=== PATIENT | male | born 2000 | race Caucasian/White ===

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

== ENCOUNTER 2018-02-08 12:43 | Emergency (ER) | payer BC, OTHER ==
[2018-02-08 13:07] VITALS: BP 131/74
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
[2018-02-08] MEDS ORDERED: Acetaminophen TAB* 325 MG PO ONE (13:33)
== END 2018-02-08 13:55 | disposition home or self-care (01) ==
LOC: UCEAST 12:43
DX: S06.0X0A Concussion without loss of consciousness, initial encounter (principal); S80.11XA Contusion of right lower leg, initial encounter; S50.11XA Contusion of right forearm, initial encounter; V49.40XA Driver injured in collision with unspecified motor vehicles in traffic accident, initial encounter; Y92.410 Unspecified street and highway as the place of occurrence of the external cause
CPT/HCPCS: 99211; A9270-GY; G0463

== ENCOUNTER 2019-02-05 11:26 | Emergency (ER) | payer BC, OTHER ==
[2019-02-05] MEDS ORDERED: Ondansetron ODT TAB* 4 MG SL PRN (12:59)
[2019-02-05] MEDS ORDERED: Ondansetron ODT TAB* 4 MG ONE (13:03)
[2019-02-05] MEDS ORDERED: Ondansetron INJ* 2 MG/ML VIAL IV ONE ×2 (13:47→17:47)
[2019-02-05] MEDS ORDERED: NS 0.9% 1000 ML** 1,000 ML IV ONE ×2 (13:47→14:18)
--- NOTE | 2019-02-05 13:53 | ED ---
GI/ HPI - HPI Summary HPI Summary: Pt is a 18 y/o M presenting to the ED with a chief complaint of GI issues. He states he began feeling ill with upper respiratory symptoms on 02/03/19, including cough, rhinorrhea, and nasal congestion. He woke up the next day feeling okay, but tried to eat something and immediately vomited. He reports N/V /D, and abd pain. He denies fever, headache, recent travel, or being around anyone that was sick. - History of Current Complaint Chief Complaint: EDNauseaVomitDiarrh Time Seen by Provider: 02/05/19 13:47 Stated Complaint: VOMITING PER PT Hx Obtained From: Patient Onset/Duration: Started Days Ago, Still Present Timing: Constant, Lasting Days Severity: Moderate Current Severity: Severe Pain Intensity: 7 Location of Pain: Diffuse Associated Signs and Symptoms: Positive: Nausea, Vomiting, Diarrhea, Cough. Negative: Fever Aggravating Factor(s): Nothing Alleviating Factor(s): Nothing - Allergy/Home Medications Allergies/Adverse Reactions: Allergies Allergy/AdvReac Type Severity Reaction Status Date / Time No Known Allergies Allergy Verified 02/05/19 14:00 Home Medications: Home Medications Sertraline* [Zoloft*] 100 mg PO DAILY 02/05/19 [History Confirmed 02/05/19] PMH/Surg Hx/FS Hx/Imm Hx Previously Healthy: Yes Endocrine/Hematology History: Denies: Hx Diabetes Cardiovascular History: Denies: Hx Hypertension, Hx Pacemaker/ICD History: Denies: Hx Renal Disease Musculoskeletal History: Reports: Other Musculoskeletal History - internal derangement right knee Sensory History: Denies: Hx Hearing Aid Psychiatric History: Denies: Hx Panic Disorder - Cancer History Hx Hematologic Symptoms: No Hx Chemotherapy: No Hx Radiation Therapy: No Hx Palliative Cancer Treatment: No - Surgical History Surgery Procedure, Year, and Place: Right Knee ACL RECONTSTRUCTION. LEFT KNEE ACL RECONSTRUCTION Hx Anesthesia Reactions: No Infectious Disease History: No Infectious Disease History: Denies: Traveled Outside the [place] in Last 30 Days - Family History Known Family History: Negative: Hypertension, Diabetes - Social History Alcohol Use: Occasionally Hx Substance Use: Yes Substance Use Type: Reports: None Hx Tobacco Use: No Smoking Status (MU): Never Smoked Tobacco Review of Systems Negative: Fever Positive: Nasal Discharge Positive: Cough Positive: Abdominal Pain, Vomiting, Diarrhea, Nausea All Other Systems Reviewed And Are Negative: Yes Physical Exam - Summary Physical Exam Summary: Constitutional: Well-developed, Well-nourished, Alert. (-) Distressed Skin: Warm, Dry HENT: Normocephalic; Atraumatic. Dry mucous membranes Eyes: Conjunctiva normal Neck: Musculoskeletal ROM normal neck. (-) JVD, (-) Stridor, (-) Nuchal rigidity Cardio: Rhythm regular, rate normal, Heart sounds normal; Intact distal pulses; Radial pulses are 2+ and symmetric. (-) Murmur Pulmonary/Chest wall: Effort normal. (-) Respiratory distress, (-) Wheezes, (-) Rales Abd: Soft, mild epigastric tenderness, (-) Distension, (-) Guarding, (-) Rebound Musculoskeletal: (-) Edema Lymph: (-) Cervical adenopathy Neuro: Alert, Oriented x3 Psych: Mood and affect Normal Triage Information Reviewed: Yes Vital Signs On Initial Exam: Initial Vitals Temp Pulse Resp BP Pulse Ox 97.8 F 87 16 133/87 98 02/05/19 11:29 02/05/19 11:29 02/05/19 11:29 02/05/19 11:29 02/05/19 11:29 Vital Signs Reviewed: Yes Procedures - Sedation Patient Received Moderate/Deep Sedation with Procedure: No Diagnostics - Vital Signs Vital Signs Temp Pulse Resp BP Pulse Ox 02/05/19 12:55 98.1 F 92 16 142/99 98 02/05/19 11:29 97.8 F 87 16 133/87 98 - Laboratory Result Diagrams: 02/05/19 14:12 02/05/19 14:12 Lab Statement: Any lab studies that have been ordered have been reviewed, and results considered in the medical decision making process. - CT CT a/p CT Interpretation Completed By: Radiologist Summary of CT Findings: No evidence of bowel obstruction is noted. Normal appendix is visualized. No obstructive uropathy is noted. No free fluid is identified. ED physician has reviewed this report. Re-Evaluation - Re-Evaluation 1st re-eval Re-Evaluation Time: 16:54 Change: Unchanged Comment: Pt fell asleep and did not drink his contrast, per radiology. CT will be taken soon. 2nd re-eval Re-Evaluation Time: 17:50 Change: Improved Comment: Pt feels better after IV fluids, CT without abnormality. Will PO challenge Third Eval Re-Evaluation Time: 18:05 Change: Improved - tolerated PO. sent home w zofran GIGU Course/Dx - Course Course Of Treatment: 18-year-old male presents with nausea vomiting and generalized abdominal pain. DDx includes viral syndrome, appendicitis, pancreatitis, GERD, renal stone, Cholecystitis, Less likely SBO, testicular torsion. Exam relatively unremarkable today, no rigidity or suggestions of acute surgical abd. Pt with negative Aguilar's on exam. Lipase to evaluate for pancreatitis. Will obtain cbc to assess for underlying infection. Denies testicular pain, low suspicion for pathology. No headaches or neck pain to suggest meningitis. Labs notable for elevated WBC 22, will check CT a/p. - Diagnoses Provider Diagnoses: Nausea & vomiting, Dehydration Discharge ED - Sign-Out/Discharge Documenting (check all that apply): Patient Departure - Discharge Plan Condition: Stable Disposition: HOME Prescriptions: Ondansetron ODT TAB* [Zofran 4 MG Odt TAB*] 4 mg PO Q8H PRN 4 Days #12 tab.odt PRN Reason: Nausea/Vomiting Patient Education Materials: Acute Nausea and Vomiting (ED) Referrals: [facility] [Outside] Additional Instructions: You were seen in the emergency department for vomiting or abdominal pain. The CT scan did not show any abnormalities. Please take Zofran as needed every 6-8 hours or vomiting. If any studies were not completed at the time of discharge you will be called with the relevant results. Please follow up with your primary care doctor in next 2-3 days and return to emergency department for worsening pain, vomiting, inability to each or drink or concerning symptoms. It was a pleasure taking care of you today. - Billing Disposition and Condition Condition: STABLE Disposition: Home - Attestation Statements Document Initiated by Vera: Yes Documenting Scribe: Cee Mcintosh Provider For Whom Vera is Documenting (Include Credential): Mumtaz Escalante MD. Scribe Attestation: Cee Pace, scribed for Mumtaz Escalante MD. on 02/06/19 at 0825. Scribe Documentation Reviewed: Yes Provider Attestation: The documentation as recorded by the Cee diaz accurately reflects the service I personally performed and the decisions made by me, Mumtaz Escalante MD. Status of Scribe Document: Viewed
[2019-02-05] MEDS ORDERED: Ketorolac INJ* 30 MG/ML 1 ML VIAL IV ONE (14:18)
[2019-02-05 14:21] LABS: Hematocrit 50 % (42-52); Hemoglobin 17.5 g/dL (14.0-18.0); Mean Corpuscular HGB Conc 35 g/dL (31-36); Mean Corpuscular Hemoglobin 33 pg (27-31); Mean Corpuscular Volume 93 fL (80-94); Mean Platelet Volume 8.2 fL (7.4-10.4); Platelet Count 352 10^3/uL (150-450); Red Blood Count 5.35 10^6 /uL (4.18-5.48); Red Cell Distribution Width 12 % (10-15)
[2019-02-05 14:40] LABS: Albumin 5.2 g/dL (3.2-5.2); Albumin/Globulin Ratio 1.5 (1-3); Calcium 10.8 mg/dL (8.6-10.3); EGFR African American 100.1 (>60); EGFR Non-African American 82.7 (>60); Globulin 3.4 g/dL (2-4); Potassium 3.6 mmol/L (3.5-5.0); Total Bilirubin 0.7 mg/dL (0.2-1.0); Total Protein 8.6 g/dL (6.4-8.9)
[2019-02-05 15:46] LABS: ABS Lymphocytes 0.9 10^3/ul (1.0-4.8); ABS Monocytes 1.8 10^3/ul (0-0.8); ABS Neutrophils 19.2 10^3/ul (1.5-7.7); Lymphocyte % 4.3 %; Nucleated Red Blood Cells % 0.1
[2019-02-05] MEDS ORDERED: Iohexol 300* (CONTRAST) 10 ML SDV IV ONE (16:15)
[2019-02-05] MEDS ORDERED: Ondansetron ODT TAB* 4 MG PO ONE (18:08)
[2019-02-05 18:47] VITALS: BP 136/83
== END 2019-02-05 18:36 | disposition home or self-care (01) ==
LOC: ED 11:26
DX: R11.2 Nausea with vomiting, unspecified (principal); E86.0 Dehydration; Z79.899 Other long term (current) drug therapy
CPT/HCPCS: 36415; 74177; 80053; 83690; 85025; 96361; 96374; 96375; 96376; 99283; A9270-GY; J1885; J2405; Q9967